=== PATIENT | female | born 1955 | race Caucasian/White ===

== ENCOUNTER → 2018-07-30 05:57 | Outpatient (CLI) | payer MEDICARE, BC ==
[~2018-07-30] VITALS: Ht 154.9 cm; Wt 59.1 kg
--- NOTE | ~2018-07-30 | HEMODYNAMI ---
PATIENT:MARILEE SNELL MEDICAL RECORD: [id number] : 51 LOCATION:[facility] ADMISSION DATE: 07/30/18 Generatedon:07/30/20188:35 Patient name: MARILEE SNELL Patient #: [id number] SSN: D OB: 1955 Date of study: 07/30/2018 Page: Of Hemodynamic Procedure Report Patient Data Patient Demographics Procedure consent was obtained First Name: MARILEE Gender: Female Last Name: ALIS : 1955 [facility] Initial: AURY Age: 63 year(s) Patient #: [id number] Race: Unknown Additional ID: [id number] Contact details Address: [address] [place] [address] ROAD State: [place] City: [place] Zip code: [address] Past Medical History Allergies Allergen Reaction Date Comments Reported Other allergy 07/30/2018 IBUPROFEN- PM Admission Admission Data Admission Date: 07/30/2018 Admission Time: 5:57 Height (in.): 60 BSA: 1.58 (m2) Height (cm.): 152.4 BMI: 26.37 (kg/m2) Weight (lbs.): 135 Weight (kg.): 61.23 Lab Results Lab Result Date: 07/30/2018 Lab Result Time: 6:42 Biochemistry Name Units Result Min Max BUN mg/dl 14 --(--*-)-- 7 18 Creatinine mg/dl 0.7 --(*---)-- 0.6 1.3 CBC Name Units Result Min Max Hematocrit % 41.1 -*(----)-- 42 54 Hemoglobin g/dl 13.7 --(*---)-- 13.5 17.5 Procedure Procedure Types Cath Procedure Diagnostic Procedure LHC LH w/Coronaries Sedation Charges Moderate Sedation up to 15 minutes Procedure Description Procedure Date Procedure Date: 07/30/2018 Procedure Start Time: 8:22 Procedure End Time: 8:34 Procedure Staff Name Function Dorian Sood MD Performing Physician Case Cruz RN Nurse Paige Trinidad RT Scrub Jordy Gerard RT Monitor Misty Souza RN Cylinder Head Assembler Procedure Data Cath Procedure Fluoroscopy Diagnostic fluoroscopy Total fluoroscopy Time: 2.6 time: 2.6 min min Diagnostic fluoroscopy Total fluoroscopy dose: 272 dose: 272 mGy mGy Contrast Material Contrast Material Type Amount (ml) Isovue 300 40 Entry Location Entry Primary Successful Side Size Upsize Upsize Entry Closure Morillo ccessful Closure Location (Fr) 1 (Fr) 2 (Fr) Remarks Device Remarks Radial Right 6 Fr Mechanical artery Short Compression Estimated blood loss: 5 ml Diagnostic catheters Device Type Used For End Catheter Placement DIAGNOSTIC [place] 110cm 5 Procedure Fr catheter ([id number]) Procedure Complications No complications Procedure Medications Medication Administration Route Dosage 0.9% NaCl I.V. 100 ml/hr Oxygen etCO2 Nasal cannula 2 l/min Heparin Flush Bag added to field 2 bags (1000units/500ml NS) Lidocaine 2% added to field 20 Radial Cocktail added to field 1 syringe (Verapomil 2mg/Nitro 400mcg/Heparin 1500units) Versed I.V. 2 mg Fentanyl I.V. 100 mcg Radial Cocktail I.A. 1 syringe (Verapomil 2mg/Nitro 400mcg/Heparin 1500units) Hemodynamics Rest BSA: 1.58 (m2) HGB: 13.7 (g/dl) O2 Consumption: Estimated: 148.98 (ml/min) O2 Co nsumption indexed: Estimated:94.29 (ml/min/m) Heart Rate: 72 (bpm) Pressure Samples Time Site Value (mmHg) Purpose Heart Use Rate(bpm) 8:28 LV 119/3,14 Snapshot 82 8:28 AO 107/65(85) Pullback 82 8:28 LV 105/-2,6 Pullback 82 Gradients Valve Time Site 1 Site 2 Mean SEP/DFP Peak To Heart Use (mmHg) (sec/min) Peak Rate (mmHg) (bpm) Aortic 8:28 LV AO 0 4 0 82 105/-2,6 107/65(85) Calculations Valve P-P Mean Valve Index Valve Source Name Gradient Area Flow (cm2) Aortic 0 0 0 0 Snapshots Pre Cath Intra NCS Post Cath Vital Signs Time Heart Resp SPO2 etCO2 NIBP (mmHg) Rhythm Pain Sedation Rate (ipm) (%) (mmHg) Status Level (bpm) 8:11:37 68 12 98 36.9 175/90(122) NSR 0 (11) 10(A) , No pain 8:15:59 65 19 98 35.4 132/77(103) NSR 0 (11) 10(A) , No pain 8:20:03 74 18 97 0 118/85(103) NSR 0 (11) 9(A) , No pain 8:24:05 73 15 95 37.7 131/79(94) NSR 0 (11) 9(A) , No pain 8:28:16 81 17 97 18.8 89/62(72) NSR 0 (11) 9(A) , No pain 8:32:14 80 17 93 39.2 99/62(88) NSR 0 (11) 9(A) , No pain Medications Time Medication Route Dose Verified Delivered Reason Notes Effectiveness by by 8:10:09 0.9% NaCl I.V. 100 Case Case Per ml/hr Anthony Cruz physician RN RN 8:10:18 Oxygen etCO2 2 l/min Case Case Per Nasal Anthony Cruz physician cannula RN RN 8:10:28 Heparin Flush added 2 bags Case Case used for Bag to Anthony Cruz procedure (1000units/500ml [facility] RN RN NS) 8:10:40 Lidocaine 2% added 20ml Case Case for local to vial Lorigan Anthony anesthetic field RN RN 8:10:50 Radial Cocktail added 1 Case Case used for (Verapomil to syringe Anthony Cruz procedure 2mg/Nitro field RN RN 400mcg/Heparin 1500units) 8:18:01 Versed I.V. 2 mg Case Case for sedation Anthony Cruz RN RN 8:18:10 Fentanyl I.V. 100 mcg Case Case for sedation Anthony Cruz RN RN 8:27:05 Radial Cocktail I.A. 1 Case Dorian for (Verapomil syringe Anthony childress 2mg/Nitro RN 400mcg/Heparin 1500units) Procedure Log Time Note 7:41:33 Signed procedure consent form obtained from patient. 7:41:35 Time tracking: Regular hours (M-F 7:00 - 5:00) 7:41:39 Plan of Care:Hemodynamics will remain stable., Cardiac rhythm will remain stable., Comfort level will be maintained., Respiratory function will remain adequate., Patient/ family verbilizes understanding of procedure., Procedure tolerated without complication., Recovers from procedure without complications.. 7:41:53 H&P Date Dictated: 07/21/2018 Within 30 days and on chart., H&P Addendum completed by physician on day of procedure. (MUST COMPLETE FOR ALL OUTPATIENTS). 7:42:10 Patient Height : 60 inches 7:42:14 Patient Weight : 135 lbs 7:42:42 Patient allergic to Other allergyIBUPROFEN- PM 7:53:21 Misty Souza RN sent for patient. Start room use. 7:57:49 Patient received from Pre/Post Procedure Room to CCL 1 Alert and oriented. Tansferred to table in Supine position. 7:57:50 Warm blankets applied, and adriana hugger turned on for patient comfort. 7:57:50 Correct patient and procedure confirmed by team. 7:57:51 ECG and BP/O2 sat monitors applied to patient. 8:10:09 0.9% NaCl 100 ml/hr I.V. was administered by Case Cruz RN; Per physician; 8:10:18 Oxygen 2 l/min etCO2 Nasal cannula was administered by Case Cruz RN; Per physician; 8:10:28 Heparin Flush Bag (1000units/500ml NS) 2 bags added to field was administered by Case Cruz RN; used for procedure; 8:10:31 Vital chart was started 8:10:32 Baseline sample Acquired. 8:10:36 Rhythm: sinus rhythm 8:10:40 Lidocaine 2% 20ml vial added to field was administered by Case Cruz RN; for local anesthetic; 8:10:50 Radial Cocktail (Verapomil 2mg/Nitro 400mcg/Heparin 1500units) 1 syringe added to field was administered by Case Cruz RN; used for procedure; 8:11:33 Full Disclosure recording started 8:11:35 Pre-procedure instructions explained to patient. 8:11:35 Pre-op teaching completed and patient verbalized understanding. 8:11:37 Family in waiting room. 8:11:38 Patient NPO since Midnight. 8:11:40 Is the patient allergic to Iodine/contrast media? No. 8:11:41 Is patient on blood thinner?No 8:11:42 Patient diabetic? No. 8:11:46 Previous problem with sedation/anesthesia? No ? 8:11:48 Snore? No 8:11:49 Sleep apnea? No 8:11:50 Deviated septum? No 8:11:50 Opens mouth fully? Yes 8:11:51 Sticks out tongue? Yes 8:11:53 Airway obstruction? No ? 8:11:55 Dentures? No ? 8:11:58 Modified Trino's test Ulnar < 7 seconds 8:12:00 Patient pain scale 0/10 ?. 8:12:08 IV patent on arrival in left forearm with 0.9% NaCl at [facility]. 8:14:04 Lab Result : BUN 14 mg/dl 8:14:04 Lab Result : Hemoglobin 13.7 g/dl 8:14:04 Lab Result : Creatinine 0.7 mg/dl 8:14:04 Lab Result : Hematocrit 41.1 % 8:14:06 Lab results completed and on chart. 8:14:09 Right Radial & Right Groin area was prepped with chlora-prep and draped in sterile fashion 8:14:10 Alarms reviewed by R. N. 8:14:10 Sharps counted by scrub and verified by R.N. 8:14:13 Use device set Radial Dx or PCI 8:14:13 ACIST Syringe (07535) opened to sterile field. 8:14:14 Medline Cath Pack ([id number]) opened to sterile field. 8:14:14 Bag Decanter (2002) opened to sterile field. 8:14:15 ACIST Hand Control (28466) opened to sterile field. 8:14:15 ACIST Manifold (55918) opened to sterile field. 8:14:16 Tegaderm 4 x 4 (1626W) opened to sterile field. 8:14:16 MBrace Wrist Support ([id number]) opened to sterile field. 8:14:18 DIAGNOSTIC WIRE .035 260cm J wire (926159) opened to sterile field. 8:14:24 SHEATH 6FR Slender ([id number]) opened to sterile field. 8:14:30 Physician arrived 8:14:31 --------ALL STOP TIME OUT------ 8:14:31 Final Timeout: patient, procedure, and site verified with staff and physician. All members of the team are in agreement. 8:14:33 Right Radial & Right Groin site verified by team. 8:14:35 Physical assessment completed. ASA score P 2 - A patient with mild systemic disease as per Dorian Sood MD. 8:14:38 Sedation plan: IV Moderate Sedation Medication:Versed, Fentanyl 8:17:17 Zero performed for pressure channel P1 8:18:01 Versed 2 mg I.V. was administered by Case Cruz RN; for sedation; 8:18:10 Fentanyl 100 mcg I.V. was administered by Case Cruz RN; for sedation; 8:22:11 Procedure started. 8:22:23 Local anesthetic to right radial artery with Lidocaine 2% by Dorian Sood MD.INITIAL ACCESS ONLY 8:26:14 A 6 Fr Short sheath was inserted into the Right Radial artery 8:26:30 A DIAGNOSTIC [place] 110cm 5 Fr catheter (737132) was advanced over the wire and used for Procedure. 8:27:05 Radial Cocktail (Verapomil 2mg/Nitro 400mcg/Heparin 1500units) 1 syringe I.A. was administered by Dorian Sood MD; for vasodilation; 8:28:21 LV gram done using MARIN 8:28:23 Injector settings: Ml/sec: 5, Volume: 15, 8:28:24 LV hemodynamics recorded. 8:28:36 EF : 60 % 8:29:50 LCA angiography performed. 8:30:40 RCA angiography performed. 8:31:32 Catheter removed. 8:31:35 TR BAND Standard ([id number]) opened to sterile field. 8:31:45 Sheath removed intact; hemostasis achieved with Mechanical Compression to the Right Radial artery. 8:31:47 Procedure ended.(Physican Out) 8:33:40 Fluoroscopy time 02.60 minutes. 8:33:44 Flurop Dose total: 272 8:33:44 Fluoroscopy dose: 272 mGy 8:33:47 Contrast amount:Isovue 300 40ml. 8:33:48 Sharps counted by scrub and verified by R.N. 8:33:50 TR band inflated with 12cc of air. 8:33:51 Insertion/operative site no bleeding no hematoma. 8:33:54 Post Procedure Pulses reassessed and unchanged 8:33:56 Post-procedure physical assessment completed. ASA score P 2 - A patient with mild systemic disease as per Dorian Sood MD. 8:33:58 Post procedure rhythm: unchanged. 8:34:03 Estimated blood loss: 5 ml 8:34:05 Post procedure instruction explained to patient.Patient verbalizes understanding. 8:34:05 Patient needs reinforcement of post procedure teaching. 8:34:15 Procedure type changed to Cath procedure, Diagnostic procedure, LHC, LHC w/Coronaries, Sedation Charges, Moderate Sedation up to 15 minutes 8:34:29 Procedure and supply charges have been captured, reviewed, submitted and are correct. 8:34:31 Procedure Complication : No complications 8:34:33 Vital chart was stopped 8:34:34 See physician's report for complete and final results. 8:34:35 Report given to Pre/Post Procedure Room. 8:34:37 Patient transfered to Pre/Post Procedure Room with Stretcher. 8:34:43 Procedure ended. 8:34:43 Full Disclosure recording stopped 8:34:47 End room use (Document Last) Device Usage Item Name Manufacture Quantity Catalog Hospital Part Current Minima l Lot# / Number Charge Number Stock Stock Serial# Code ACIST Acist 1 19412 221565 383191 983118 20 Syringe Medical (82863) Systems Inc Medline Cath Medline 1 [id number] 532756 96710 296668 5 Pack ([id number]) Bag Decanter Microtek 1 2001S 659643 40971 997567 5 (2001S) Medical Inc. ACIST Hand Acist 1 62729 388799 902727 437787 5 Control Medical (87648) Systems Inc ACIST Acist 1 83799 217903 560330 731601 5 Manifold Medical (40532) Systems Inc Tegaderm 4 x 3M 1 1626W 684679 640573 421949 5 4 (1626W) MBrace Wrist Advanced 1 140-0250-00 306638 53398 043877 5 Support Vascular ([id number]) Dynamics DIAGNOSTIC [facility]ng[place] 1 029090 198418 291548 585507 30 WIRE .035 260cm J wire (294999) SHEATH 6FR Terumo 1 [id number] 083328 809917 159671 40 Slender ([id number]) DIAGNOSTIC Terumo 1 40-5013 978612 687909 705772 5 [place] 110cm 5 Fr catheter (312160) TR BAND Terumo 1 [id number] 853826 468230 909889 40 Standard ([id number]) Signature Audit [place] Stage Time Signature Unsigned Intra-Procedure 07/30/2018 Jordy Gerard 8:35:12 AM RT(R) Signatures Monitor : Jordy Gerard RT Signature : Date : Time : [id number] [place] [address]
[~2018-07-30 05:57] MED LIST: ALENDRONATE SOD70 MG PO; ESTRACE 0.0142.5 GM VG
[2018-07-30 06:35] VITALS: BP 184/92; Ht 154.9 cm; Wt 59.1 kg
[2018-07-30 07:02] LABS: CALC OSMOLALITY 278 mosm/kg (275-300); CALCIUM 8.1 mg/dL (8.5-10.1); CARBON DIOXIDE 26.3 mmol/L (21.0-32.0); CHLORIDE - SERUM 105 mmol/L (98-107); CREATININE - SERUM 0.7 mg/dL (0.6-1.3); GLUCOSE 85 mg/dL (74-106); SODIUM 140 mmol/L (136-145); UREA NITROGEN 14 mg/dL (7-18); eGFR NON AFRICAN AMERICAN 89 mL/min (90-120)
[2018-07-30 07:16] LABS: BASOPHILS 0.4 % (0-2); EOSINOPHILS 6.5 % (0-7); HEMATOCRIT 41.1 % (36.0-48.0); HEMOGLOBIN 13.7 g/dL (12-16); IMMATURE GRANULOCYTES 0.1 % (0-5); LYMPHOCYTES 34.1 % (15-50); MCHC 33.3 g/dL (31.0-37.0); MEAN PLATELET VOLUME 10.8 fL (7.4-10.4); MONOCYTES 8.5 % (2-11); NEUTROPHILS 50.4 % (40-80); PLATELET COUNT 280 10x3/uL (130-400); RBC 4.28 10x6/uL (4.00-5.40); RDW 13.6 % (11.5-14.5); WBC 7.4 10x3/uL (4.8-10.8)
== END | disposition home or self-care (01) ==
LOC: D.CATH 05:57
PROVIDERS: Internal Medicine Cardiovascular Disease
DX: I20.9 Angina pectoris, unspecified (principal); Z01.812 Encounter for preprocedural laboratory examination